=== PATIENT | female | born 2000 | race Caucasian/White ===

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

== ENCOUNTER 2018-03-29 00:02 | Emergency (ER) | payer MEDICAID ==
[~2018-03-29] VITALS: Ht 160 cm; Wt 55.5 kg
[~2018-03-29 00:02] MED LIST: MECL-111 PO
[2018-03-29 00:05] VITALS: BP 121/75
[2018-03-29] MEDS ORDERED: PRED20TA PO (00:47)
== END 2018-03-29 01:20 | disposition home or self-care (01) ==
LOC: ER 00:03
DX: R06.02 Shortness of breath (principal); G43.909 Migraine, unspecified, not intractable, without status migrainosus; Z79.899 Other long term (current) drug therapy
CPT/HCPCS: 71045; 99283

== ENCOUNTER 2018-04-28 23:10 | Emergency (ER) | payer MEDICAID ==
[~2018-04-28] VITALS: Ht 160 cm; Wt 59.0 kg
[2018-04-28] MEDS ORDERED: dexamethasone sod phosphate 10mg/ml inj IV STA (23:41)
[2018-04-28] MEDS ORDERED: normal saline 1000ML IV soln IVB ONE (23:45)
[2018-04-28] MEDS ORDERED: ketorolac tromethamine 15mg/ml inj. IV ONE (23:45)
[2018-04-28] MEDS ORDERED: proCHLORperazine 10 MG/2 ml inj IV ONE (23:45)
[2018-04-28] MEDS ORDERED: diphenhydrAMINE 50 mg/ml inj IV ONE (23:45)
[2018-04-28] MEDS ORDERED: SUMAtriptan succ. 6 MG/0.5ml vial SQ ONE (23:45)
[2018-04-28] MEDS ORDERED: PROC5TAB56 PO (23:47)
[2018-04-28] MEDS ORDERED: SUMA25TA35 PO (23:47)
--- NOTE | 2018-04-29 00:02 | NUR ---
Patient laying on dawson, reports pain 7 "migraine". She is A&O x4, SHABANA and is appropriate, MARK Trujillo is with her now admin ordered medication.
[2018-04-29 00:48] VITALS: BP 117/67
== END 2018-04-29 00:57 | disposition home or self-care (01) ==
LOC: ER 23:11
DX: G43.909 Migraine, unspecified, not intractable, without status migrainosus (principal); H53.149 Visual discomfort, unspecified
CPT/HCPCS: 96372; 96374; 96375; 99283; J0780; J1100; J1200; J1885; J7030; J3030

== ENCOUNTER 2021-10-19 17:09 | Emergency (ER) | payer MEDICAID ==
[~2021-10-19] VITALS: Ht 160 cm; Wt 61.0 kg
[~2021-10-19 17:09] MED LIST changes: -MECL-111 PO; +MECL-159 PO; +PROC5TAB56 PO; +SUMA25TA35 PO
[2021-10-19 18:32] VITALS: BP 111/57
== END 2021-10-19 22:06 | disposition home or self-care (01) ==
LOC: ER 17:09
DX: B34.9 Viral infection, unspecified (principal); R19.7 Diarrhea, unspecified; R53.83 Other fatigue; Z20.822 Contact with and (suspected) exposure to COVID-19; G43.909 Migraine, unspecified, not intractable, without status migrainosus; Z79.899 Other long term (current) drug therapy
CPT/HCPCS: 87502; 87503; 87635; 99283; C9803

== ENCOUNTER 2021-11-26 11:14 | Emergency (ER) | payer MEDICAID ==
[~2021-11-26] VITALS: Ht 152.4 cm; Wt 61.4 kg
--- NOTE | 2021-11-26 13:08 | NUR ---
Pt pagging wwith occassional vomiting, cool towel placed on foregead, connected to toolroom helper for further observation.
[2021-11-26] MEDS ORDERED: valproate sod inj 1,000 MG in normal saline 50ml IV soln 50 ML IV STA (14:43)
[2021-11-26] MEDS ORDERED: SUMAtriptan succ. 6 MG/0.5ml vial SQ ONE (14:45)
[2021-11-26] MEDS ORDERED: diazepam inj 5 MG/ML inj. IV ONE (14:45)
[2021-11-26] MEDS ORDERED: diphenhydrAMINE 50 mg/ml inj IV ONE (14:45)
[2021-11-26] MEDS ORDERED: proCHLORperazine 10 MG/2 ml inj IV ONE (14:45)
[2021-11-26] MEDS ORDERED: ketorolac trometh. 30mg/ml inj. IV ONE (14:45)
[2021-11-26 16:24] VITALS: BP 138/84
== END 2021-11-26 16:27 | disposition home or self-care (01) ==
LOC: ER 11:14
DX: G43.809 Other migraine, not intractable, without status migrainosus (principal)
CPT/HCPCS: 96365; 96375; 99284; J0780; J1200; J1885; J3360; J3490

== ENCOUNTER 2023-03-17 08:59 | Emergency (ER) | payer MEDICAID ==
[~2023-03-17] VITALS: Ht 160 cm; Wt 63.8 kg
[~2023-03-17 08:59] MED LIST changes: -MECL-159 PO; +MECL-302 PO
[2023-03-17 10:02] VITALS: TEMP 97.9
[2023-03-17] MEDS ORDERED: metoclopramide 10mg tablet PO ONE (10:50)
[2023-03-17] MEDS ORDERED: magnesium 2GM in 50ml NS 50 ML IV ONE (10:50)
[2023-03-17] MEDS ORDERED: diphenhydrAMINE 25mg capsule PO ONE (10:50)
[2023-03-17] MEDS ORDERED: normal saline 1000ml 1,000 ML IV SCH (10:50)
[2023-03-17] MEDS ORDERED: normal saline 1000ml 1,000 ML IV ONE (11:00)
[2023-03-17] MEDS ORDERED: magnesium sulf injection 1 GM in normal saline 50ml IV soln 50 ML IV ONE (11:00)
[2023-03-17 12:51] VITALS: BP 104/63; PULSE 59; RESP 16; O2SAT 99
[2023-03-17 13:11] LABS: BILIRUBIN,URINE NEGATIVE (Neg); CLARITY,URINE CLOUDY (Clear); COLOR,URINE YELLOW (Yellow); GLUCOSE, URINE NEGATIVE (Neg); KETONES,URINE NEGATIVE (Neg); LEUKOCYTE ESTERASE ,URINE TRACE (Neg); NITRITES, URINE POSITIVE (Neg); OCCULT BLOOD,URINE TRACE-INTACT (Neg); PH,URINE 7.5 (4.8-8.0); PROTEIN,URINE NEGATIVE (Neg); UROBILINOGEN,URINE 0.2 E.U/dL (0.2-1.0)
[2023-03-17 13:14] LABS: UA COLLECTION TYPE NON-SPECIFIED
[2023-03-17 13:16] LABS: BACTERIA,URINE 4+ /HPF (Neg)
[2023-03-17 13:17] LABS: WBC,URINE 30-50 /HPF (0-4)
[2023-03-17 13:18] LABS: SQUAMOUS EPITHELIAL CELL,UR MANY /LPF (FEW); TRANSITIONAL EPI CELLS,URINE FEW /HPF
== END 2023-03-17 12:54 | disposition home or self-care (01) ==
LOC: ER 08:59
DX: G43.909 Migraine, unspecified, not intractable, without status migrainosus (principal); R11.2 Nausea with vomiting, unspecified; Z88.0 Allergy status to penicillin; Z79.899 Other long term (current) drug therapy
CPT/HCPCS: 81001; 96365; 99285; J3475; J3490; J7030; Q0163; 96374